=== PATIENT | female | born 1990 | race Two or more races ===

== ENCOUNTER 2018-10-21 02:23 | Inpatient (IN) | payer OTHER ==
[~2018-10-21] VITALS: Ht 157.5 cm; Wt 85.7 kg
[2018-10-21] MEDS ORDERED: PRENATAL FORMU1 EAC1 PO (08:58)
[2018-10-23] MEDS ORDERED: LABETALOL HCL100 MG PO (09:50)
== END 2018-10-23 14:36 | disposition home or self-care (01) | DRG 807 ==
LOC: OB/GYN 02:23 → LDR 02:23 → OB/GYN 10-22 07:45
PROVIDERS: ADMIT Specialist
PROC: 10E0XZZ Delivery of Products of Conception, External Approach (ICD-10-PCS; principal; 2018-10-21)
PROC: 0UQMXZZ Repair Vulva, External Approach (ICD-10-PCS; 2018-10-21)
PROC: 10907ZC Drainage of Amniotic Fluid, Therapeutic from Products of Conception, Via Natural or Artificial Opening (ICD-10-PCS; 2018-10-21)
PROC: 4A1HXCZ Monitoring of Products of Conception, Cardiac Rate, External Approach (ICD-10-PCS; 2018-10-21)
DX: O71.82 Other specified trauma to perineum and vulva (principal); Z37.0 Single live birth; Z3A.38 38 weeks gestation of pregnancy; Z22.330 Carrier of Group B streptococcus

== ENCOUNTER 2019-06-27 19:25 | Emergency (ER) | payer OTHER ==
[~2019-06-27] VITALS: Ht 157.5 cm; Wt 65.3 kg
[~2019-06-27 19:25] MED LIST: LABETALOL HCL100 MG PO; PRENATAL FORMU1 EAC1 PO
== END 2019-06-28 08:06 | disposition home or self-care (01) ==
LOC: ER 19:25
DX: K29.60 Other gastritis without bleeding (principal)